=== PATIENT | male | born 1970 | race Caucasian/White ===

== ENCOUNTER 2019-05-25 13:27 | Emergency (ER) | payer BC, OTHER ==
[2019-05-25 13:51] VITALS: BP 140/89
--- NOTE | 2019-05-25 14:00 | UC ---
Skin Complaint HPI - HPI Summary HPI Summary: Patient is a 48-year-old male who presents to the urgent care with chief complaint of having a rash in the upper arms which is spreading into the abdomen and legs. He reports that he thinks he got poison jailyn which is a spreading and not improving. He has been taking [id number] medications with no improvement symptoms. He denies any fever or chills and has no other complaints. - History of Current Complaint Chief Complaint: UCSkin Time Seen by Provider: 05/25/19 13:48 Stated Complaint: RASH Hx Obtained From: Patient Onset/Duration: Gradual Onset Skin Exposure Onset/Duration: Days Ago Timing: Constant Onset Severity: Mild Current Severity: Mild Pain Intensity: 4 - Allergy/Home Medications Allergies/Adverse Reactions: Allergies Allergy/AdvReac Type Severity Reaction Status Date / Time aspirin Allergy facial Verified 05/25/19 13:52 swelling bee venom protein (honey bee) Allergy Hives/Diff. Verified 05/25/19 13:52 Breathing/I tching ibuprofen Allergy facial Verified 05/25/19 13:52 swelling PMH/Surg Hx/FS Hx/Imm Hx Endocrine History: Dyslipidemia - Surgical History Surgical History: Yes Surgery Procedure, Year, and Place: leg fracture repair 2010 - Family History Known Family History: Positive: Non-Contributory - Social History Alcohol Use: Weekly Substance Use Type: None Smoking Status (MU): Light Every Day Tobacco Smoker Type: Smokeless Tobacco Amount Used/How Often: 1 can per week Review of Systems All Other Systems Reviewed And Are Negative: Yes Constitutional: Positive: Negative Skin: Positive: Rash Eyes: Positive: Negative ENT: Positive: Negative Respiratory: Positive: Negative Cardiovascular: Positive: Negative Gastrointestinal: Positive: Negative Genitourinary: Positive: Negative Motor: Positive: Negative Neurovascular: Positive: Negative Musculoskeletal: Positive: Negative Neurological: Positive: Negative Psychological: Positive: Negative Is Patient Immunocompromised?: No Physical Exam - Summary Physical Exam Summary: VITAL SIGNS: Reviewed. GENERAL: Patient is a well developed and nourished male who is lying comfortably in the stretcher. Patient is not in any acute respiratory distress. HEAD AND FACE: No signs of trauma. No ecchymosis, hematomas or skull depressions. No sinus tenderness. EYES: PERRLA, EOMI x 2, No injected conjunctiva, no nystagmus. EARS: Hearing grossly intact. Ear canals and tympanic membranes are within normal limits. MOUTH: Oropharynx within normal limits. NECK: Supple, trachea is midline, no adenopathy, no JVD, no carotid bruit, no c- spine tenderness, neck with full ROM. CHEST: Symmetric, no tenderness at palpation LUNGS: Clear to auscultation bilaterally. No wheezing or crackles. CVS: Regular rate and rhythm, S1 and S2 present, no murmurs or gallops appreciated. ABDOMEN: Soft, non-tender. No signs of distention. No rebound no guarding, and no masses palpated. Bowel sounds are normal. EXTREMITIES: FROM in all major joints, no edema, no cyanosis or clubbing. NEURO: Alert and oriented x 3. No acute neurological deficits. Speech is normal and follows commands. SKIN: Dry and warm, Erythematous patches in the left and right upper extremity. Also he has spots in the left side of the abdomen and left side of the leg Triage Information Reviewed: Yes Appearance: Well-Appearing Vital Signs: Initial Vital Signs Temp 97.4 F 05/25/19 13:47 Pulse 64 05/25/19 13:47 Resp 16 05/25/19 13:47 BP 140/89 05/25/19 13:47 Pulse Ox 97 05/25/19 13:47 Vital Signs Reviewed: Yes Course/Dx - Course Course Of Treatment: In the ED course the patient was given a prescription for Kenalog and prednisone. Patient will be taking Benadryl only at nighttime. Patient will follow with the primary care physician. - Diagnoses Provider Diagnosis: Poison jailyn dermatitis Discharge - Sign-Out/Discharge Documenting (check all that apply): Patient Departure All imaging exams completed and their final reports reviewed: No Studies - Discharge Plan Condition: Stable Disposition: HOME Prescriptions: predniSONE [Prednisone 20 MG TAB] 40 mg PO DAILY #10 tablet Triamcinolone 0.1% CREAM (NF) [Kenalog 0.1% Cream (NF)] 1 applic TOPICAL BID # 60 gm Patient Education Materials: Poison Jailyn (ED) Referrals: Sudheer Live PA [Primary Care Provider] - Additional Instructions: Take medications as instructed Increase your fluid intake F/U with PCP in the next 2-3 days Return to the if symptoms worsen - Billing Disposition and Condition Condition: STABLE Disposition: Home
== END 2019-05-25 14:06 | disposition home or self-care (01) ==
LOC: UCEAST 13:27
DX: L23.7 Allergic contact dermatitis due to plants, except food (principal); E78.5 Hyperlipidemia, unspecified; F17.210 Nicotine dependence, cigarettes, uncomplicated
CPT/HCPCS: 99202; G0463